=== PATIENT | male | born 1965 | race Two or more races ===

== ENCOUNTER 2022-08-25 03:22 | Emergency (ER) | payer OTHER ==
[~2022-08-25] VITALS: Ht 170.2 cm; Wt 83.5 kg
--- NOTE | 2022-08-25 03:28 | NUR ---
Vicente, from [facility] snf, had seizure episode x 2, Versed 5 mg given on scene BG 121, no oral trauma. Pt A/Ox0; post-ictal. Responds to pain stimuli. Tolerating R/A at 89%. Put on O2 3lpm satting at 95%. Connected pt to POX and monitor. Safety seizure precaution measures in place.
[2022-08-25] MEDS ORDERED: LEVETIRACETAM (500MG) 500 MG/5 ML VIAL IV ONE (03:41)
[2022-08-25] MEDS ORDERED: LIDOCAINE 2% JEL UROJET 10 ML MM ONE (03:48)
--- NOTE | 2022-08-25 03:59 | NUR ---
BLOOD COLLECTED AND SENT TO LAB
[2022-08-25] MEDS ORDERED: LEVETIRACETAM (500MG) 1,000 MG in IV NS 0.9% 100 ML IV SCH (04:00)
--- NOTE | 2022-08-25 04:00 | NUR ---
URINE COLLECTED AND SENT TO LAB
--- NOTE | 2022-08-25 04:04 | NUR ---
BS ACCUCHECK 120
[2022-08-25 04:06] VITALS: BP 148/100
[2022-08-25 04:15] LABS: BASOPHILS % (AUTO) 0.5 % (0.0-2.0); EOSINOPHILS % (AUTO) 1.8 % (0.0-6.0); HEMATOCRIT 40 % (39-51); HEMOGLOBIN 13.1 g/dL (13.5-17.5); LYMPHOCYTES # (AUTO) 2.1 K/uL (0.8-4.8); LYMPHOCYTES % (AUTO) 33.9 % (20.0-44.0); MEAN CORPUSCULAR HGB CONC 33 g/dl (31.0-36.0); MEAN CORPUSCULAR VOLUME 93 fL (80-96); MONOCYTES # (AUTO) 0.7 K/uL (0.1-1.30); MONOCYTES % (AUTO) 11.4 % (2.0-12.0); NEUTROPHILS # (AUTO) 3.2 K/uL (1.8-8.9); NEUTROPHILS % (AUTO) 52.4 % (43.0-81.0); PLATELET COUNT (AUTO) 129 K/uL (150-450); RED BLOOD CELL COUNT(AUTO) 4.28 MIL/uL (4.5-6.0); WHITE BLOOD COUNT (AUTO) 6.1 K/uL (4.3-11.0)
[2022-08-25 04:23] LABS: CALCIUM, SERUM 9.2 mg/dL (8.5-10.1); CARBON DIOXIDE 18 mmol/L (21-32); CHLORIDE 107 mmol/L (98-107); CREATININE 1.2 mg/dL (0.6-1.3); GLUCOSE 127 mg/dL (74-106); POTASSIUM 3.2 mmol/L (3.5-5.1); SODIUM SERUM 141 mmol/L (136-145); UREA NITROGEN, BLOOD 16 mg/dL (7-18)
[2022-08-25 04:29] LABS: ALANINE AMINOTRANSFERASE 25 U/L (12-78); ALBUMIN 3.4 g/dL (3.4-5.0); ALKALINE PHOSPHATASE 123 U/L (46-116); ASPARTATE AMINOTRANSFERASE 34 U/L (15-37); BILIRUBIN,DIRECT 0.2 mg/dL (0.0-0.2); BILIRUBIN,TOTAL 0.8 mg/dL (0.2-1.0); TOTAL PROTEIN, SERUM 7.4 g/dL (6.4-8.2); VALPROIC ACID 4 ug/mL (50-100)
[2022-08-25 04:38] LABS: ALCOHOL, BLOOD < 3 mg/dL (0-0)
--- NOTE | 2022-08-25 04:51 | NUR ---
[facility] WILL TRANSPORT PATIENT IN 60 MINS BACK TO [facility]
--- NOTE | 2022-08-25 05:01 | NUR ---
REPORT GIVEN TO MERCEDES RN COLLISION WORKER FROM [facility] FOR FAISAL
--- NOTE | 2022-08-25 05:25 | NUR ---
ROSIE EMT AT PT'S BEDSIDE TO D/C PT TO [facility]. REPORT GIVEN TO ROSIE EMT
== END 2022-08-25 05:26 ==
LOC: ER 03:24
DX: G40.909 Epilepsy, unspecified, not intractable, without status epilepticus (principal); K21.9 Gastro-esophageal reflux disease without esophagitis; F31.9 Bipolar disorder, unspecified; F20.9 Schizophrenia, unspecified
CPT/HCPCS: 99284; 96365; 93005; 85025; 80048; 80076; 36415; 80164; 82962; 80320; 80307; J3490; J7030; J1953; G0480

== ENCOUNTER 2024-11-01 09:46 | Inpatient (IN) | payer OTHER ==
[~2024-11-01] VITALS: Ht 162.6 cm; Wt 63.5 kg
[2024-11-01] MEDS ORDERED: LIDOCAINE 0.5% HCL 50 ML VIAL ONE (09:58)
[2024-11-01 10:17] LABS: PLATELET COUNT (AUTO) 169 K/uL (150-450); RED BLOOD CELL COUNT(AUTO) 4.34 MIL/uL (4.5-6.0); RED CELL DISTRIBUTION WIDTH 12.9 % (11.5-15.0); WHITE BLOOD COUNT (AUTO) 6.2 K/uL (4.3-11.0)
[2024-11-01 10:27] LABS: CALCIUM, SERUM 8.6 mg/dL (8.5-10.1); CREATININE 0.9 mg/dL (0.6-1.3); SODIUM SERUM 141.0 mmol/L (136-145); UREA NITROGEN, BLOOD 11.0 mg/dL (7-18)
[2024-11-01 10:33] LABS: ASPARTATE AMINOTRANSFERASE 18.0 U/L (15-37); TOTAL PROTEIN, SERUM 7.5 g/dL (6.4-8.2)
[2024-11-01 10:36] LABS: INR 1.07 (0.91-1.10)
[2024-11-01] MEDS ORDERED: LORAZEPAM INJ 2 MG/ML VIAL IV PRN (12:00)
[2024-11-01] MEDS ORDERED: hydrALAZINE HCL IV 20 MG VIAL IV PRN (12:00)
[2024-11-01] MEDS ORDERED: ACETAMINOPHEN 325 MG TABLET PO PRN (12:00)
[2024-11-01] MEDS ORDERED: MORPHINE SULFATE INJ 2 MG/ML DISP.SYRIN IV PRN (12:00)
[2024-11-01] MEDS ORDERED: ALBUTEROL FS 2.5 MG/0.5 ML VIAL.NEB NEB PRN (12:00)
[2024-11-01] MEDS ORDERED: ONDANSETRON HCL/PF 4 MG/2 ML VIAL IVP PRN (12:00)
[2024-11-01] MEDS ORDERED: Z GUARD REMEDY 4 OZ OINT TP PRN (12:00)
[2024-11-01] MEDS ORDERED: POTASSIUM CL. PREMIX PERIPHER. 50 ML IV SCH (12:00)
[2024-11-01] MEDS ORDERED: FOLI0.4T6 PO (12:16)
[2024-11-01] MEDS ORDERED: ACET325T53 PO (12:16)
[2024-11-01] MEDS ORDERED: CRAN300T PO (12:16)
[2024-11-01] MEDS ORDERED: SENN-291 PO (12:16)
[2024-11-01] MEDS ORDERED: LACO200T2 PO (12:16)
[2024-11-01] MEDS ORDERED: ACET-73 PO (12:16)
[2024-11-01] MEDS ORDERED: OLAN2.5T3 PO (12:16)
[2024-11-01] MEDS ORDERED: ASCO500T10 PO (12:16)
[2024-11-01] MEDS ORDERED: MULT-754 PO (12:16)
[2024-11-01] MEDS ORDERED: THIA100T88 PO (12:16)
[2024-11-01] MEDS ORDERED: NA P133E RC (12:16)
[2024-11-01] MEDS ORDERED: METO50TA16 PO (12:16)
[2024-11-01] MEDS ORDERED: DIVA-76 PO (12:16)
[2024-11-01] MEDS ORDERED: LEVE100S PO ×2 (12:16)
[2024-11-01] MEDS ORDERED: POTA20PA40 PO (12:16)
[2024-11-01] MEDS ORDERED: FURO40TA5 PO (12:16)
[2024-11-01] MEDS: IV NS 0.9% 1,000 ML IV SCH (12:22)
[2024-11-01] MEDS: POTASSIUM CHLORIDE 20 MEQ TAB.PRT.SR PO ONE (12:22)
[2024-11-01 13:00] VITALS: BP 109/80; TEMP 97.9; O2SAT 98
[2024-11-01] MEDS: LACOSAMIDE 50 MG TABLET PO SCH (17:13)
[2024-11-01] MEDS: FUROSEMIDE 40 MG TABLET PO SCH (17:13)
[2024-11-01] MEDS: DOCUSATE SODIUM LIQ 100 MG/10 ML UDC PO SCH (17:13)
[2024-11-01] MEDS: DIVALPROEX SODIUM 250 MG TABLET.DR PO SCH (17:13)
[2024-11-01] MEDS: OLANZAPINE 2.5 MG TABLET PO SCH (17:13)
[2024-11-01 20:00] VITALS: BP 115/74; TEMP 97.7; O2SAT 98
[2024-11-01] MEDS: LEVETIRACETAM SOL (5 ML) 100 MG/ML UDC PO SCH (21:49)
[2024-11-01] MEDS: HEPARIN SODIUM, PORCINE 5000 UNITS/1 ML VIAL SQ SCH (22:02)
[2024-11-02 07:07] LABS: PLATELET COUNT (AUTO) 186 K/uL (150-450); RED BLOOD CELL COUNT(AUTO) 4.51 MIL/uL (4.5-6.0); RED CELL DISTRIBUTION WIDTH 13.3 % (11.5-15.0); WHITE BLOOD COUNT (AUTO) 5.3 K/uL (4.3-11.0)
[2024-11-02 07:52] LABS: ASPARTATE AMINOTRANSFERASE 17.0 U/L (15-37); CALCIUM, SERUM 8.7 mg/dL (8.5-10.1); CREATININE 0.7 mg/dL (0.6-1.3); PHOSPHORUS 2.6 mg/dL (2.5-4.9); SODIUM SERUM 145.0 mmol/L (136-145); TOTAL PROTEIN, SERUM 7.5 g/dL (6.4-8.2); UREA NITROGEN, BLOOD 13.0 mg/dL (7-18)
[2024-11-02 08:00] VITALS: BP 106/75; TEMP 97.7; O2SAT 98
[2024-11-02 08:03] VITALS: BP 106/75; TEMP 97.7; O2SAT 98
[2024-11-02] MEDS: METOPROLOL TARTRATE 50 MG TABLET PO SCH (09:00)
[2024-11-02] MEDS: POLYETHYLENE GLYCOL 3350 17 GM POWD.PACK PO SCH (09:00)
[2024-11-02] MEDS: THIAMINE HCL 100 MG TABLET PO SCH (09:00)
[2024-11-02] MEDS: LEVETIRACETAM SOL (5 ML) 100 MG/ML UDC PO SCH (09:18)
[2024-11-02] MEDS: OLANZAPINE 10 MG VIAL IM PRN (10:03)
[2024-11-02] MEDS ORDERED: IV NS 0.9% 1,000 ML IV PRN (10:40)
[2024-11-02 16:00] VITALS: BP 110/74; TEMP 98.1; O2SAT 99
[2024-11-02 20:00] VITALS: BP 126/77; TEMP 97.9; O2SAT 96
[2024-11-03 07:20] VITALS: BP 126/77; TEMP 97.9; O2SAT 96
[2024-11-03 08:00] VITALS: BP 126/83; TEMP 97.7; O2SAT 96
[2024-11-03 09:27] VITALS: BP 123/83
== END 2024-11-03 15:00 | DRG 53 ==
LOC: ER 09:48 → MED 11:42
PROVIDERS: ADMIT Internal Medicine
DX: G40.909 Epilepsy, unspecified, not intractable, without status epilepticus (principal); G93.49 Other encephalopathy; R53.2 Functional quadriplegia; E87.6 Hypokalemia; K74.60 Unspecified cirrhosis of liver; W19.XXXA Unspecified fall, initial encounter; Y92.129 Unspecified place in nursing home as the place of occurrence of the external cause; S01.81XA Laceration without foreign body of other part of head, initial encounter; S01.01XA Laceration without foreign body of scalp, initial encounter; F03.93 Unspecified dementia, unspecified severity, with mood disturbance; F31.9 Bipolar disorder, unspecified; F20.9 Schizophrenia, unspecified; I25.10 Atherosclerotic heart disease of native coronary artery without angina pectoris; Z86.73 Personal history of transient ischemic attack (TIA), and cerebral infarction without residual deficits; K21.9 Gastro-esophageal reflux disease without esophagitis; Z98.890 Other specified postprocedural states
CPT/HCPCS: 36415; 70450-TC; 71045-TC; 80048-TC; 80053-TC; 80076-TC; 83735-TC; 84100-TC; 85025-TC; 85730-TC; 87081-TC; 97112-TC; 97116-TC; 97530-TC; 97535-TC; A4223; A6403; G0378; J1644; J1953; J3490; J7030

== ENCOUNTER 2024-12-11 20:48 | Emergency (ER) | payer OTHER ==
[~2024-12-11] VITALS: Ht 167.6 cm; Wt 68.0 kg
[~2024-12-11 20:48] MED LIST: ACET-73 PO; ACET325T53 PO; ASCO500T10 PO; CRAN300T PO; DIVA-76 PO; FOLI0.4T6 PO; FURO40TA5 PO; LACO200T2 PO; LEVE100S PO; METO50TA16 PO; MULT-754 PO; NA P133E RC; OLAN2.5T3 PO; POTA20PA40 PO; SENN-291 PO; THIA100T88 PO
[2024-12-12 02:20] LABS: PLATELET COUNT (AUTO) 140 K/uL (150-450); RED BLOOD CELL COUNT(AUTO) 4.24 MIL/uL (4.5-6.0); RED CELL DISTRIBUTION WIDTH 13.0 % (11.5-15.0); WHITE BLOOD COUNT (AUTO) 5.5 K/uL (4.3-11.0)
[2024-12-12 02:28] LABS: CALCIUM, SERUM 8.4 mg/dL (8.5-10.1); CREATININE 0.9 mg/dL (0.6-1.3); SODIUM SERUM 141.0 mmol/L (136-145); UREA NITROGEN, BLOOD 17.0 mg/dL (7-18)
[2024-12-12 02:41] LABS: ASPARTATE AMINOTRANSFERASE 25.0 U/L (15-37); NT-PRO BNP 110.0 pg/mL (0-125); TOTAL PROTEIN, SERUM 6.8 g/dL (6.4-8.2)
[2024-12-12 04:11] VITALS: BP 111/72; TEMP 98.1; O2SAT 96
== END 2024-12-12 04:12 ==
LOC: ER 20:50
DX: S01.112A Laceration without foreign body of left eyelid and periocular area, initial encounter (principal); M25.522 Pain in left elbow; F20.9 Schizophrenia, unspecified; F31.9 Bipolar disorder, unspecified; G40.909 Epilepsy, unspecified, not intractable, without status epilepticus; I25.10 Atherosclerotic heart disease of native coronary artery without angina pectoris; K74.60 Unspecified cirrhosis of liver; Z79.899 Other long term (current) drug therapy; F03.93 Unspecified dementia, unspecified severity, with mood disturbance; W19.XXXA Unspecified fall, initial encounter; Y93.89 Activity, other specified; Y92.89 Other specified places as the place of occurrence of the external cause; Y99.8 Other external cause status
CPT/HCPCS: 36415; 70450-TC; 71045-TC; 72125-TC; 73080-TC; 80053-TC; 83880; 84484-TC; 85025-TC

== ENCOUNTER 2025-03-24 05:36 | Emergency (ER) | payer OTHER ==
[~2025-03-24] VITALS: Ht 167.6 cm; Wt 63.5 kg
[~2025-03-24 05:36] MED LIST changes: +IVER3TAB2 PO
[2025-03-24 05:45] VITALS: TEMP 97.7
--- NOTE | 2025-03-24 05:49 | NUR ---
COVID SWAB COLLECTED.
[2025-03-24 06:31] LABS: PLATELET COUNT (AUTO) 146 K/uL (150-450); RED BLOOD CELL COUNT(AUTO) 4.63 MIL/uL (4.5-6.0); RED CELL DISTRIBUTION WIDTH 13.1 % (11.5-15.0); WHITE BLOOD COUNT (AUTO) 5.2 K/uL (4.3-11.0)
[2025-03-24 06:46] LABS: CALCIUM, SERUM 9.1 mg/dL (8.5-10.1); CREATININE 0.9 mg/dL (0.6-1.3); SODIUM SERUM 141 mmol/L (136-145); UREA NITROGEN, BLOOD 17 mg/dL (7-18)
[2025-03-24 06:52] LABS: ALCOHOL, BLOOD < 3 mg/dL (0-10); ASPARTATE AMINOTRANSFERASE 17 U/L (15-37); TOTAL PROTEIN, SERUM 8.1 g/dL (6.4-8.2)
[2025-03-24] MEDS ORDERED: OLANZAPINE 5 MG TABLET ONE (08:00)
[2025-03-24] MEDS: OLANZAPINE 5 MG TABLET PO ONE (08:01)
[2025-03-24 08:18] LABS: APPEARANCE,URINE CLEAR (CLEAR); BLOOD, URINE NEGATIVE Ery/uL (NEGATIVE); LEUKOCYTE ESTERASE ,URINE NEGATIVE (NEGATIVE); NITRITE, URINE NEGATIVE (NEGATIVE); UGLUCOSE NEGATIVE (NEGATIVE)
[2025-03-24 08:31] LABS: AMPHETAMINE, URINE NEGATIVE (NEGATIVE); BARBITURATE, URINE NEGATIVE (NEGATIVE); BENZODIAZEPINE, URINE NEGATIVE (NEGATIVE); CANNABINOID, URINE NEGATIVE (NEGATIVE); COCCAINE, URINE NEGATIVE (NEGATIVE); OPIATE, URINE NEGATIVE (NEGATIVE)
--- NOTE | 2025-03-24 09:10 | NUR ---
[facility] SWAB COLLECTED AND SENT
[2025-03-24] MEDS ORDERED: ALBU2.5V13 NEB (09:51)
[2025-03-24] MEDS ORDERED: POLY119P2 PO (09:51)
[2025-03-24] MEDS ORDERED: DOCU100C36 PO (09:51)
--- NOTE | 2025-03-24 09:51 | NUR ---
CALLED [facility] FOR TRANSPORT ETA 45 MINS.
--- NOTE | 2025-03-24 09:57 | NUR ---
REPORT GIVEN TO JOSEPH PALOMARES AT [facility].
--- NOTE | 2025-03-24 10:49 | NUR ---
[facility] [address] AT BEDSIDE.
--- NOTE | 2025-03-24 10:55 | NUR ---
TRANSPORTED BACK TO SNF, STABLE CONDITION.
[2025-03-24 11:22] VITALS: BP 120/70; O2SAT 98
== END 2025-03-24 10:55 ==
LOC: ER 05:41
DX: F03.92 Unspecified dementia, unspecified severity, with psychotic disturbance (principal); F20.9 Schizophrenia, unspecified; F31.9 Bipolar disorder, unspecified; F03.911 Unspecified dementia, unspecified severity, with agitation; I11.0 Hypertensive heart disease with heart failure; I50.9 Heart failure, unspecified; G40.909 Epilepsy, unspecified, not intractable, without status epilepticus; Z79.899 Other long term (current) drug therapy; Z20.822 Contact with and (suspected) exposure to COVID-19
CPT/HCPCS: 36415; 80048-TC; 80076-TC; 85025-TC; 87081-TC; G0480

== ENCOUNTER 2025-04-05 05:01 | Inpatient (IN) | payer MEDICAID, OTHER ==
[~2025-04-05] VITALS: Ht 152.4 cm; Wt 54.4 kg
[~2025-04-05 05:01] MED LIST changes: +ALBU2.5V13 NEB; +DOCU100C36 PO; +POLY119P2 PO; -SENN-291 PO
[2025-04-05] MEDS ORDERED: OLANZAPINE 5 MG TABLET ONE (05:30)
[2025-04-05] MEDS: OLANZAPINE ZYDIS 5 MG TAB.RAPDIS PO ONE (05:30)
[2025-04-05 05:35] LABS: PLATELET COUNT (AUTO) 148 K/uL (150-450); RED BLOOD CELL COUNT(AUTO) 4.41 MIL/uL (4.5-6.0); RED CELL DISTRIBUTION WIDTH 13.1 % (11.5-15.0); WHITE BLOOD COUNT (AUTO) 3.9 K/uL (4.3-11.0)
[2025-04-05 05:48] LABS: ALCOHOL, BLOOD < 3 mg/dL (0-10); ASPARTATE AMINOTRANSFERASE 16 U/L (15-37); CALCIUM, SERUM 8.3 mg/dL (8.5-10.1); CREATININE 0.9 mg/dL (0.6-1.3); SODIUM SERUM 144 mmol/L (136-145); TOTAL PROTEIN, SERUM 7.4 g/dL (6.4-8.2); UREA NITROGEN, BLOOD 17 mg/dL (7-18)
[2025-04-05] MEDS ORDERED: MIDAZOLAM HCL 2 MG/2ML VIAL ONE (05:57)
[2025-04-05] MEDS ORDERED: OLANZAPINE 10 MG VIAL IM ONE ×2 (05:57→09:19)
[2025-04-05] MEDS: OLANZAPINE 10 MG VIAL IM ONE ×2 (05:58→09:22)
[2025-04-05] MEDS: MIDAZOLAM HCL 2 MG/2ML VIAL IM ONE (05:58)
[2025-04-05 07:19] LABS: APPEARANCE,URINE CLEAR (CLEAR); BLOOD, URINE NEGATIVE Ery/uL (NEGATIVE); LEUKOCYTE ESTERASE ,URINE NEGATIVE (NEGATIVE); NITRITE, URINE NEGATIVE (NEGATIVE); UGLUCOSE NEGATIVE (NEGATIVE)
[2025-04-05 07:25] LABS: AMPHETAMINE, URINE NEGATIVE (NEGATIVE); BARBITURATE, URINE NEGATIVE (NEGATIVE); BENZODIAZEPINE, URINE POSITIVE (NEGATIVE); CANNABINOID, URINE NEGATIVE (NEGATIVE); COCCAINE, URINE NEGATIVE (NEGATIVE); OPIATE, URINE NEGATIVE (NEGATIVE)
[2025-04-05] MEDS ORDERED: LORAZEPAM INJ 2 MG/ML VIAL ONE (09:19)
[2025-04-05] MEDS: LORAZEPAM INJ 2 MG/ML VIAL IM ONE (09:21)
[2025-04-05] MEDS ORDERED: MAGNESIUM HYDROXIDE 30 ML UDC PO PRN (12:00)
[2025-04-05] MEDS ORDERED: QUETIAPINE FUMARATE 25 MG TABLET PO PRN (12:00)
[2025-04-05] MEDS ORDERED: MAG HYDROX/AL HYDROX/SIMETH 30 ML UDC PO PRN (12:00)
[2025-04-05] MEDS: BLOOD SUGAR DIAGNOSTIC 1 EACH STRIP IN ONE (12:03)
[2025-04-05 12:31] VITALS: BP 116/84; TEMP 98.7; O2SAT 99
[2025-04-05] MEDS ORDERED: ACETAMINOPHEN 325 MG TABLET PO PRN (13:30)
[2025-04-05] MEDS ORDERED: ACETAMINOPHEN ES 500 MG TABLET PO PRN (13:30)
[2025-04-05] MEDS ORDERED: ALBUTEROL FS 2.5 MG/0.5 ML VIAL.NEB NEB PRN (13:30)
[2025-04-05 16:00] VITALS: BP 123/93; TEMP 98.1; O2SAT 97
[2025-04-05] MEDS: LACOSAMIDE 50 MG TABLET PO SCH (16:14)
[2025-04-05] MEDS: DOCUSATE SODIUM 100 MG CAPSULE PO SCH (16:15)
[2025-04-05] MEDS ORDERED: DIVALPROEX SODIUM 250 MG TABLET.DR PO SCH (17:00)
[2025-04-05 21:03] VITALS: BP 118/79; TEMP 98; O2SAT 95
[2025-04-05] MEDS: LEVETIRACETAM SOL (5 ML) 100 MG/ML UDC PO SCH (21:33)
[2025-04-05] MEDS: ZOLPIDEM TARTRATE 5 MG TABLET PO PRN (23:06)
[2025-04-06 08:00] VITALS: BP 99/68; TEMP 97.6; O2SAT 96
[2025-04-06 08:12] LABS: ASPARTATE AMINOTRANSFERASE 28.0 U/L (15-37); CALCIUM, SERUM 8.6 mg/dL (8.5-10.1); CREATININE 0.7 mg/dL (0.6-1.3); SODIUM SERUM 142.0 mmol/L (136-145); TOTAL PROTEIN, SERUM 7.3 g/dL (6.4-8.2); UREA NITROGEN, BLOOD 15.0 mg/dL (7-18)
[2025-04-06 08:20] LABS: LDL 104.0 mg/dL (0-99)
[2025-04-06] MEDS: METOPROLOL TARTRATE 50 MG TABLET PO SCH (09:00)
[2025-04-06] MEDS: FUROSEMIDE 40 MG TABLET PO SCH (09:00)
[2025-04-06] MEDS: LEVETIRACETAM SOL (5 ML) 100 MG/ML UDC PO SCH (09:00)
[2025-04-06] MEDS ORDERED: OLANZAPINE 2.5 MG TABLET PO SCH (09:00)
[2025-04-06] MEDS: ASCORBIC ACID 500 MG TABLET PO SCH (09:26)
[2025-04-06] MEDS: FOLIC ACID 1 MG TABLET PO SCH (09:26)
[2025-04-06] MEDS: POTASSIUM CHLORIDE 20 MEQ POWDER PACKET PO SCH (09:26)
[2025-04-06] MEDS: THIAMINE HCL 100 MG TABLET PO SCH (09:27)
[2025-04-06 15:00] VITALS: BP 107/65; TEMP 97.5; O2SAT 98
[2025-04-06 17:00] VITALS: BP 125/72; TEMP 97.5; O2SAT 98
[2025-04-06 20:13] VITALS: BP 123/85; TEMP 98.3; O2SAT 98
[2025-04-06] MEDS: OLANZAPINE ZYDIS 5 MG TAB.RAPDIS PO SCH (21:58)
[2025-04-06 22:35] LABS: CREATININE 0.8 mg/dL (0.6-1.3)
[2025-04-06] MEDS: ZOLPIDEM TARTRATE 5 MG TABLET PO PRN (23:55)
[2025-04-07] MEDS: ACETAMINOPHEN 325 MG TABLET PO PRN (02:17)
[2025-04-07 07:39] LABS: PLATELET COUNT (AUTO) 150 K/uL (150-450); RED BLOOD CELL COUNT(AUTO) 4.36 MIL/uL (4.5-6.0); RED CELL DISTRIBUTION WIDTH 13.0 % (11.5-15.0); WHITE BLOOD COUNT (AUTO) 5.3 K/uL (4.3-11.0)
[2025-04-07] MEDS: OLANZAPINE ZYDIS 5 MG TAB.RAPDIS PO SCH (09:47)
[2025-04-07] MEDS: DIVALPROEX SODIUM 125 MG TABLET.DR PO SCH (14:26)
[2025-04-07] MEDS: OLANZAPINE ZYDIS 5 MG TAB.RAPDIS PO PRN (16:21)
[2025-04-07 20:00] VITALS: BP 95/63; TEMP 98; O2SAT 99
[2025-04-08 08:00] VITALS: BP 111/70; TEMP 97.5; O2SAT 96
[2025-04-08] MEDS: AMOX/CLAVULANATE 875 MG TABLET PO SCH (10:42)
[2025-04-08] MEDS: DIVALPROEX SODIUM 125 MG CAP.SPRINK PO SCH (13:26)
[2025-04-08 16:00] VITALS: BP 112/75; TEMP 97.7; O2SAT 97
[2025-04-08 20:00] VITALS: BP 103/63; TEMP 97.7; O2SAT 96
[2025-04-08] MEDS: OLANZAPINE 5 MG TABLET PO SCH (21:28)
[2025-04-09 08:00] VITALS: BP 130/78; TEMP 97.8; O2SAT 100
[2025-04-09] MEDS: OLANZAPINE 5 MG TABLET PO SCH (08:40)
[2025-04-09] MEDS: OLANZAPINE 10 MG VIAL IM ONE (13:09)
[2025-04-09 16:00] VITALS: BP 109/88; TEMP 98.7; O2SAT 100
[2025-04-09 22:00] VITALS: BP 118/75; TEMP 98.7; O2SAT 99
[2025-04-09] MEDS ORDERED: Z GUARD REMEDY 4 OZ OINT TP PRN (23:00)
[2025-04-10 08:36] VITALS: BP 115/83; TEMP 98.1; O2SAT 98
[2025-04-10] MEDS: DIVALPROEX SODIUM 250 MG TABLET.DR PO SCH (11:07)
[2025-04-10 17:04] VITALS: BP 114/80; TEMP 97.7; O2SAT 96
[2025-04-10 20:41] VITALS: BP 100/58; TEMP 98.2; O2SAT 95
[2025-04-11 08:00] VITALS: BP 104/60; TEMP 97.7; O2SAT 98
[2025-04-11] MEDS: DIVALPROEX SODIUM 250 MG TABLET.DR PO SCH (14:16)
[2025-04-11 15:46] VITALS: BP 100/58; TEMP 98.2; O2SAT 100
[2025-04-11 20:54] VITALS: BP 105/72; TEMP 97.5; O2SAT 98
[2025-04-12 08:00] VITALS: BP 137/79; TEMP 97.8; O2SAT 97
[2025-04-12 16:00] VITALS: BP 100/65; TEMP 98.1; O2SAT 96
[2025-04-12 20:45] VITALS: BP 116/81; TEMP 97.9; O2SAT 95
[2025-04-12] MEDS: OLANZAPINE 5 MG TABLET PO SCH (21:12)
[2025-04-13 08:29] VITALS: BP 104/67; TEMP 98.1; O2SAT 98
[2025-04-13 15:53] VITALS: BP 108/68; TEMP 98.6; O2SAT 99
[2025-04-13 20:00] VITALS: BP 108/66; TEMP 98.4; O2SAT 97
[2025-04-13] MEDS: TRAZODONE 50 MG TABLET PO SCH (21:29)
[2025-04-14 08:00] VITALS: BP 116/57; TEMP 97.7; O2SAT 98
[2025-04-14] MEDS: OLANZAPINE 10 MG VIAL IM STA (09:08)
[2025-04-14] MEDS: OLANZAPINE 5 MG TABLET PO SCH (14:08)
[2025-04-14 16:00] VITALS: BP 114/67; TEMP 98.1; O2SAT 97
[2025-04-14 20:18] VITALS: BP 119/67; TEMP 98; O2SAT 98
[2025-04-15 08:00] VITALS: BP 129/87; TEMP 98.1; O2SAT 96
[2025-04-15 16:24] VITALS: BP 99/64; TEMP 98.6; O2SAT 97
[2025-04-15] MEDS: DIVALPROEX SODIUM 500 MG TABLET.DR PO SCH (21:00)
[2025-04-15 21:28] VITALS: BP 112/72; TEMP 98.3; O2SAT 97
[2025-04-16 08:00] VITALS: BP 111/79; TEMP 97.5; O2SAT 97
[2025-04-16 13:36] VITALS: BP 121/78
[2025-04-16 16:00] VITALS: BP 111/85; TEMP 98.1; O2SAT 95
[2025-04-16 20:55] VITALS: BP 114/75; TEMP 97.9; O2SAT 98
[2025-04-17 08:00] VITALS: BP 128/81; TEMP 98.3; O2SAT 98
[2025-04-17 13:11] VITALS: BP 120/82
[2025-04-17 16:00] VITALS: BP 116/75; TEMP 98.6; O2SAT 96
[2025-04-17 20:08] VITALS: BP 105/67; TEMP 98.6; O2SAT 96
[2025-04-18 08:00] VITALS: BP 107/72; TEMP 98.6; O2SAT 97
== END 2025-04-18 13:40 | DRG 761 ==
LOC: ER 05:04 → GPS 11:08
PROVIDERS: ADMIT Psychiatry & Neurology Psychiatry; ATTEND Internal Medicine
DX: F25.9 Schizoaffective disorder, unspecified (principal); G93.41 Metabolic encephalopathy; R53.2 Functional quadriplegia; E44.1 Mild protein-calorie malnutrition; G93.49 Other encephalopathy; D69.6 Thrombocytopenia, unspecified; F03.92 Unspecified dementia, unspecified severity, with psychotic disturbance; F39 Unspecified mood [affective] disorder; I11.0 Hypertensive heart disease with heart failure; G40.909 Epilepsy, unspecified, not intractable, without status epilepticus; K74.60 Unspecified cirrhosis of liver; E88.09 Other disorders of plasma-protein metabolism, not elsewhere classified; F03.93 Unspecified dementia, unspecified severity, with mood disturbance; F29 Unspecified psychosis not due to a substance or known physiological condition; I25.10 Atherosclerotic heart disease of native coronary artery without angina pectoris; K21.9 Gastro-esophageal reflux disease without esophagitis; I50.32 Chronic diastolic (congestive) heart failure; Z79.899 Other long term (current) drug therapy; Z86.73 Personal history of transient ischemic attack (TIA), and cerebral infarction without residual deficits; Z91.81 History of falling; F31.9 Bipolar disorder, unspecified; Z79.51 Long term (current) use of inhaled steroids; Z73.6 Limitation of activities due to disability; Z98.890 Other specified postprocedural states
CPT/HCPCS: 36415; 71045-TC; 80048-TC; 80053-TC; 80061-TC; 80076-TC; 80164-TC; 82565-TC; 84443-TC; 85025-TC; 87081-TC; 92526; 92611; 97110-TC; 97112-TC; 97116-TC; 97530-TC; G0480; J1953; J2060; J2250; J3490